=== PATIENT | female | born 1940 | race Caucasian/White ===

== ENCOUNTER 2017-05-21 05:15 | Inpatient (IN) | payer MEDICARE, BC ==
[~2017-05-21] VITALS: Ht 154.9 cm; Wt 79.4 kg
[~2017-05-21 05:15] MED LIST: ACTONEL 35 MG35 M1; ACTONEL 35 MG35 M1 PO; ACTONEL150 MG PO; AZITHROMYCIN 2250 MG PO; CELEBREX 200 M200 MG PO; DIAZOXIDE; DOVONEX120 GM TP; DYAZIDE 37.5-21 EACH; HYDROXYZINE HCL25 M2 GT; HYDROXYZINE HCL25 M2 PO; K-DUR10 MEQ; KLOR-CON 1010 MEQ PO; LORTAB 5 MG/5001 TA1; MAGOX 400400 MG PO; NIASPAN 500 MG500 M1; NIASPAN 500 MG500 M1 PO; OS-CAL 500+D C1 EACH; PERIDEX 0.12%473 M1 SSP; POTASSIUM99 M1 PO; PROZAC 20 MG20 MG PO; PROZAC20 MG PO; SPIRONOLACTONE100 M3 PO; SYNTHROID150 MCG; SYNTHROID150 MCG PO; TESSALON PERLE100 MG PO; ULORIC40 MG; ULORIC40 MG PO; VITAMIN D1000 UNI1 PO; VYTORIN 10-101 EACH PO; VYTORIN 10-201 EACH
[2017-05-21 05:17] VITALS: BP 171/108
[2017-05-21 05:50] LABS: ABSOLUTE EOSINOPHILS 0.1 thou/uL (0.0-0.7); ABSOLUTE LYMPHOCYTES 1.7 thou/uL (0.8-5.3); ABSOLUTE MONOCYTES 0.6 thou/uL (0.0-1.2); ABSOLUTE NEUTROPHILS 8.8 thou/uL (1.6-8.1); BASOPHILS 0.3 %; EOSINOPHILS 0.7 %; HEMATOCRIT 40.8 % (37.0-47.0); HEMOGLOBIN 13.5 gm/dL (12.0-15.0); LYMPHOCYTES 15.3 %; MCHC 33.2 g/dL (28.0-37.0); MCV 87.4 fL (80.0-100.0); MONOCYTES 5.4 %; MPV 8.5 fl. (7.2-11.1); NUCLEATED RBCS 0 /100WBC; PLATELET COUNT* 143 thou/uL (150-400); POLYS 78.3 %; RBC 4.67 mil/uL (4.20-5.00); RDW-CV 13.6 % (10.5-14.5); WBC 11.2 thou/uL (4.0-11.0)
[2017-05-21 05:58] LABS: CALCIUM 8.8 mg/dL (8.5-10.1); CREATININE 1.4 mg/dL (0.6-1.3); POTASSIUM 3.5 mmol/L (3.5-5.1)
[2017-05-21 06:03] LABS: ALBUMIN 3.8 g/dL (3.4-5.0); TOTAL BILIRUBIN 0.6 mg/dL (<0.1-1.0); TOTAL PROTEIN 7.1 g/dL (6.4-8.2)
[2017-05-21 06:10] LABS: URINE BILIRUBIN NEGATIVE (Negative); URINE BLOOD NEGATIVE (Negative); URINE CLARITY CLEAR; URINE COLOR STRAW; URINE GLUCOSE-RANDOM NEGATIVE (Negative); URINE KETONES NEGATIVE (Negative); URINE LEUKOCYTES-REFLEX 1+ (Negative); URINE NITRITE-REFLEX NEGATIVE (Negative); URINE PROTEIN TR (Negative); URINE UROBILINOGEN 0.2 E.U./dl (0.2-1.0)
[2017-05-21 06:13] LABS: CASTS None Seen /LPF (None Seen); CRYSTALS None Seen /LPF (None Seen); MUCUS 0-3 Light strn/LPF (None Seen); SQUAMOUS 0-3 Few /LPF (0-3); URINE RBC None Seen /HPF (0-2); WBC CLUMPS Moderate (None Seen)
[2017-05-21 09:27] VITALS: BP 127/61
[2017-05-21 12:43] VITALS: BP 111/55
[2017-05-21 14:59] LABS: INR 1.1; PROTIME 11.1 Seconds (9.20-11.50)
[2017-05-21 15:33] VITALS: BP 121/67
--- NOTE | 2017-05-21 18:09 | NUR ---
PATIENT ARRIVED ON UNIT FROM ER AT 1300. COMPLETED ADMISSION ASSESSMENT AND HISTORY. ORIENTED PATIENT TO ROOM, CALL LIGHT, AND TV. FALL CONTRACT SIGNED. PATIENT LEFT UNIT AT 1430 FOR PACU. PATIENT ALERT AND ORIENTED X'S 4. VITAL SIGNS AND SPO2 STABLE. IV CLEAN, FLUIDS INFUSING. SCD'S, YELLOW SOCKS IN PLACE. COMPLETED HOURLY ROUNDING. PATIENT IS STILL NOT BACK FROM SURGERY. WILL CONTINUE TO MONITOR.
--- NOTE | 2017-05-21 18:18 | EKG ---
[place] [address] ELECTROCARDIOGRAM REPORT Name: GUILLE LAN Room: [address] ADM IN M.R.#: [id number] Admission: 05/21/17 Attend Phys: Gianna Casey MD Discharge: Date of : 36 Report #: [id number] THIS REPORT FOR: //name// [facility] Test Date: 2017-05-21 Test Time: 15:22:20 Pat Name: GUILLE LAN Department: Room: [address] Gender: F Cognos Developer: 25 : 1940 Requested By: Anibal Parnell Order Number: [id number] Palak MD: Edwin Bar Measurements Intervals [place] Rate: 80 P: 43 MI: 168 QRS: 23 QRSD: 96 T: 17 QT: 396 QTc: 457 Interpretive Statements Sinus rhythm Compared to ECG 06/13/2011 09:38:10 No significant changes Electronically Signed On 05-21-2017 18:18:27 CDT by Edwin Bar [email or web address] <ELECTRONICALLY SIGNED> By: Edwin Bar MD, [facility] 05/21/17 1818 [id number] Edwin Bar MD, FACC /EPI
[2017-05-21 21:00] VITALS: BP 106/80
[2017-05-21 23:51] VITALS: BP 110/62
[2017-05-22 05:11] LABS: HEMOGLOBIN 11.6 gm/dL (12.0-15.0)
[2017-05-22 05:12] VITALS: BP 127/61
[2017-05-22] MEDS ORDERED: FENTANYL PATCH75 MCG TRANSDERM (08:08)
[2017-05-22 08:09] VITALS: BP 126/60
[2017-05-22 14:39] LABS: CALCIUM 8.5 mg/dL (8.5-10.1); CREATININE 1.3 mg/dL (0.6-1.3)
[2017-05-22 14:42] LABS: POTASSIUM 4.6 mmol/L (3.5-5.1)
--- NOTE | 2017-05-22 15:00 | NUR ---
SPOKE WITH PT., AND DAUGHTER . PT.FELL AT HOME WHILE TRYING TO PUT LEG IN PANT LEG AND LOST BALANCE. SHE LIVES WITH HER . HE WEARS O2. NEITHER OF THEM DRIVE. SHE IS NORMALLY INDEPENDENT AT HOME. 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 CAN BATHE AND DRESS HERSELF. USES A WALKER. SHE IS INTERESTED IN GOING TO OUR INPT.REHAB UNIT. CONSULT FOR PUT IN COMPUTER AND NOTIFIED SAMANTHA/REHAB [facility]ON. SHE HAS USED HOME HEALTH IN PAST BUT CANNOT REMEMBER NAME OF AGENCY. SHE HAS HX OF SNF AT [place]. CM WILL FOLLOW.
[2017-05-22 16:00] VITALS: BP 121/61
--- NOTE | 2017-05-22 18:04 | NUR ---
ASSUMED CARE OF PATIENT AFTER REPORT THIS MORNING. PATIENT AWAKE, ALERT, AND ORIENTED APPROPRIATELY. PHYSICAL ASSESSMENT COMPLETED AND CHARTED. COMPLAINED OF PAIN THIS SHIFT. GIVEN PRN AND SCHEDULED MEDICATIONS, SEE EMAR FOR DOCUMENTATION. VITAL SIGNS STABLE. OXYGEN SATURATION WITHIN NORMAL LIMITS ON ROOM AIR. PATIENT TRANSFERS AND AMBULATES WITH ASSISTANCE FROM STAFF. USES CALL LIGHT APPROPRIATELY. DENIES NEEDS AT THIS TIME. CALL LIGHT WITHIN REACH. NURSING WILL CONTINUE TO MONITOR.
[2017-05-22 20:00] VITALS: BP 121/67
[2017-05-23 00:42] VITALS: BP 123/58
[2017-05-23 04:25] VITALS: BP 139/54
[2017-05-23 05:08] LABS: HEMATOCRIT 29.7 % (37.0-47.0); HEMOGLOBIN 10.2 gm/dL (12.0-15.0); MCH 29.9 pg (26.0-34.0); MCHC 34.5 g/dL (28.0-37.0); MCV 86.6 fL (80.0-100.0); MPV 9.4 fl. (7.2-11.1); RBC 3.42 mil/uL (4.20-5.00); RDW-CV 13.5 % (10.5-14.5); WBC 9.1 thou/uL (4.0-11.0)
[2017-05-23 05:11] LABS: CALCIUM 8.3 mg/dL (8.5-10.1); CREATININE 1.3 mg/dL (0.6-1.3); POTASSIUM 3.9 mmol/L (3.5-5.1)
--- NOTE | 2017-05-23 05:17 | NUR ---
ASSUMED CARE OF PT AT 1900 ALERT AND ORIENTED X4 VS AND ASSESSMENT STABLE. PT GIVEN AMBIEN FOR SLEEP, ASKED PT IF SHE WANTED TO BE WOKEN UP OVERNIGHT FOR PAIN MEDS PT SAID NO. OFFERED PAIN MEDS TWICE AFTER PT GOT UP TO COMMODE PT REFUSED BOTH TIMES. WILL CONTINUE PLAN OF CARE.
[2017-05-23 07:54] VITALS: BP 121/61
--- NOTE | 2017-05-23 09:47 | NUR ---
RECEIVED CONSULT FOR POSSIBLE REHAB ADMISSION. CONSULT HAS BEEN ACKNOWLEDGED BY RETAINING ROOM CUTTER AND DR. CHAU. Pt. ADMITTED AFTER FALL W/ LEFT HIP FX AND IS S/P CLOSED REDUCTION WITH NAILING. Pt. EVALUATED BY PT/OT YESTERDAY AND HAS DEFINATE REHAB NEEDS. WILL FOLLOW ALONG WITH Pt. TO SEE HOW SHE PROGRESSES WITH THERAPIES AND ONCE MEDICALLY STABLE TO DETERMINE REHAB VS HOME WITH HH. THANK YOU FOR THIS CONSULT.
--- NOTE | 2017-05-23 17:26 | NUR ---
NO CHANGE IN PATIENT STATUS. REMAINS ALERT AND ORIENTED APPROPRIATELY. GIVEN PRN MEDICATIONS FOR PAIN, SEE EMAR FOR DOCUMENTATION. DENIES NEEDS AT THIS TIME. CALL LIGHT WITHIN REACH. NURSING WILL CONTINUE TO MONITOR.
[2017-05-24 00:22] VITALS: BP 118/67
[2017-05-24 03:42] VITALS: BP 117/60
--- NOTE | 2017-05-24 06:50 | NUR ---
PATIENT HAS SLEPT WELL THROUGHOUT THE NIGHT. PAIN HAS BEEN WELL CONTROLLED WITH ORAL PAIN MEDICATION. MEDICATIONS GIVEN AND CHARTED. VSS ON RA, ALTHOUGH PATIENT DID HAVE LOW GRADE TEMP OF 100.7. TYLENOL GIVEN AND TEMP DOWN TO 99.7. PATIENT ENCOURAGED TO USE INCENTIVE SPIROMETER. PATIENT IS UP WITH ASSIST X 1 WITH GAITBELT [place]ALKER [place] [facility]IENT SOMEHOW PULLED IV OUT THIS AM. NO IV ACCESS AT THIS TIME. PATIENT INSTRUCTED TO USE CALL LIGHT WHEN NEEDING ASSISTANCE. HOURLY ROUNDS MADE. WILL CONTINUE WITH PLAN OF CARE AND NURSING TO MONITOR.
[2017-05-24 08:44] VITALS: BP 143/65
--- NOTE | 2017-05-24 12:53 | NUR ---
ASSUMED CARES OF PT AT 0700. PT IN BED, BED IN LOW LOCKED POSITION, FALL PRECAUTIONS IN PLACE AND ACTIVE. CALL BUTTON AND PERSONAL ITEMS IN PT REACH. PT DENIES PAIN IF STAYING STILL, STATES PAIN JUMPS UP TO 9-10 UPON MOVEMENT. PT A&O X4, HRRR PER AUSCULTATION, LCTAB, AFEBRILE, PERRLA, ABD SOFT, NON TENDER TO PALPATION, ACTIVE PER 4 QUADS PER AUSCULTATION. HOURLY ROUNDING CONTINUES, PT PARTICIPATING IN THERAPIES. VSS ON RA, SKIN INTACT, SCATTERED BRUISING. LEFT ORIF DRESSING IN PLACE, C/D/I. IV LOST LAST NIGHT BY PT ACCIDENTLY PULLING OUT, IV ABT CHANGED TO PO ABT. PT UP ASSIST X1, GB/WALKER. PT BEING CONSIDERED FOR IN HOUSE REHAB IN [facility]. PT PLEASANT AND COOPERATIVE THIS MORNING ROUNDS. BM THIS MORNING. PT PROGRESSING TOWARDS GOAL. WILL CONTINUE TO MONITOR PT PROGRESS AND STATUS.
--- NOTE | 2017-05-24 14:58 | NUR ---
SPOKE WITH SAMANTHA ON REHAB. PT ACCEPTED TO GO TO REHAB UNIT IN AM
[2017-05-24 15:28] VITALS: BP 119/72
--- NOTE | 2017-05-24 17:05 | NUR ---
CONTINUING TO FOLLOW PATIENT ALONG WITH DR. CHAU. PATIENT HAS BEEN WORKING WITH THERAPIES AND SLOWLY PROGRESSING SOMETIMES LIMITED BY PAIN. SPOKE WITH PATIENT AND EXPLAINED QUALIFICATIONS AND EXPECTATIONS OF ACUTE REHAB VS. SKILLED AND THE REQUIREMENT OF BEING ABLE TO PARTICIPATE IN 3 HOURS OF THERAPY PER DAY. PATIENT STATES UNDERSTANDING AND IS WILLING AND IN AGREEMENT WITH ACUTE REHAB. WILL PLAN TO ADMIT PATIENT TO ACUTE REHAB TOMORROW IF MEDICALLY STABLE.
--- NOTE | 2017-05-24 20:10 | NUR ---
BEDSIDE REPORT TO MOTION GRAPHICS ARTIST FOR CONTINUED CARES. PT WILL D/C TO REHAB ON THIRD FLOOR TOMORROW FOR CONTINUE REHAB. VSS, PT A&O X4. HOURLY ROUNDS COMPLETED. PT PRESENTLY IN BED WITH TV ON READY FOR BED.
[2017-05-25 00:07] VITALS: BP 182/65
[2017-05-25 02:21] VITALS: BP 121/67
--- NOTE | 2017-05-25 04:30 | NUR ---
PATIENT ORIENTED X4 ON HOURLY ROUNDS. DENIES PAIN. TYLENOL GIVEN FOR FEVER. UP WITH ASSIST X1. DRESSING TO HIP CLEAN, DRY AND INTACT. VITALS STABLE ON ROOM AIR. WILL CONTINUE TO MONITOR.
[2017-05-25 08:58] VITALS: BP 111/52
[2017-05-25 16:29] VITALS: BP 109/53
[2017-05-25 19:31] VITALS: BP 109/53
[2017-05-25] MEDS ORDERED: ACTONEL150 MG PO (19:43)
[2017-05-25] MEDS ORDERED: PERIDEX 0.12%473 M1 SW&SWALLOW (19:54)
[2017-05-25] MEDS ORDERED: OXYCODONE HCL 55 MG PO (20:56)
[2017-05-25] MEDS ORDERED: PERIDEX 0.12%473 M1 PO (20:57)
--- NOTE | 2017-06-25 12:57 | OP ---
[address] [address] OPERATIVE REPORT Name: GUILLE LAN Room: [address] IN ..#: [id number] Admission: 05/21/17 Attend Phys: Gianna Casey MD Discharge: 05/25/17 Date of : 36 Report #: [id number] THIS REPORT FOR: //name// CC: Elvi Casey PREOPERATIVE DIAGNOSIS: Left intertrochanteric femur fracture. POSTOPERATIVE DIAGNOSIS: Left intertrochanteric femur fracture. PROCEDURE: Closed reduction and cephalomedullary nailing of the left intertrochanteric femur fracture. SURGEON: Anibal Parnell DO SOFTWARE BUILD ENGINEER: 1. Dirk Caraballo DO. 2. ____. ANESTHESIA: General. ANTIBIOTICS: Weight-appropriate dosing of Ancef IV preoperatively. ESTIMATED BLOOD LOSS: 150 mL. COMPLICATIONS: None. SPECIMENS: None. DRAINS: None. CONDITION: The patient is stable to PACU. IMPLANTS: Merritt gamma nail, 11 x 180 mm x 125 degree nail with 95 mm lag screw and 35 mm distal interlocking static screw. INDICATIONS FOR PROCEDURE: The patient sustained a ground level fall that led to a left intertrochanteric femur fracture and her admission to [facility]. We obtained full length femur films of her left femur, which showed total knee prosthesis distally with no evidence of any fracture and only the intertrochanteric femur fracture proximally that was a stable intertrochanteric fracture. I went over with her in detail, her daughter and were present at bedside, her diagnosis and also the recommendation for operative fixation of this fracture. I went over with them in detail, the risks and complications associated with surgery. Please see the consultation note for the full list of the risks and complications discussed. After addressing any questions or concerns that she or her family had, [place] [address] OPERATIVE REPORT Name: GUILLE LAN Room: [address]#: [id number] Admission: 05/21/17 Attend Phys: Gianna Casey MD Discharge: 05/25/17 Date of : 36 Report #: [id number] those risks and gave verbal and written consent to proceed with surgery. DESCRIPTION OF PROCEDURE: I asked the patient what extremity was correct in the presence of the preoperative and operative team. She said the left. I marked the extremity. All team members agreed. She was transferred to the operative suite where a briefing was performed indicating the correct patient, procedure, site, antibiotic and that all implants needed were present and sterile. She was given general anesthetic and then transferred over to the fracture table in the supine position, well padded and well secured. The left lower extremity was then sterilely prepped and draped in a standard fashion. An official timeout was performed indicating the correct patient, procedure, site, antibiotics and that all implants needed were present and sterile. All team members agreed. We brought in the C-arm and marked out the landmarks on both the AP and lateral planes, a 10 blade scalpel through the skin and electrocautery down and soft tissue dissection. We advanced the guidewire in its appropriate position on both AP and lateral planes and then reamed over this guidewire, placed the short gamma nail through this as it was a stable intertrochanteric femur fracture. We then made an incision for the double sleeve, inserted the double sleeve against bone and then placed the guidewire into the femoral neck and head in the appropriate position on the AP and lateral planes where it was centered in the head low in the neck on the AP and centered in the neck and head on the shaft, true lateral. We measured this and it was 90 mm. We therefore reamed to 90 mm and placed a 95 mm lag screw making sure that 5 mm will be protruding through the lateral aspect of the cortex. We then engaged the set screw fully and then backed off 1 quarter turn and confirmed the set screws was appropriately engaged by trying to turn the lag screwdriver handle, which we could not. At that point in time, we removed the double sleeve and guidewire, used the external guide to place the triple sleeve for distal interlocking static screw, scalpel through skin and soft tissue dissected down to bone. I placed the triple sleeve against bone and then drilled. It measured for a 35 screw and placed a 35 screw. At this point in time, all hardware was in place, we removed the external guide and obtained final C-arm images and saved those. We thoroughly irrigated with normal saline 1000 mL in total throughout all incision sites. All incisions had deep 0 Vicryl [id number] interrupted placed, 2-0 Monocryl buried deep subQ. The distal incision was closed with a running 3-0 suture with knots tied outside the skin. The proximal two incisions were closed with 3-0 Stratafix running subcuticular, Dermabond glue over the skin, sterile Telfa and Tegaderm dressings. Debriefing was performed where we confirmed the procedure as stated with no complication. Blood loss minimal at 150 mL and that all counts were correct and final. All team members agreed. She was successfully extubated and transferred off the operative table and taken to PACU in stable condition. POSTOPERATIVE COURSE AND EVALUATION: I spoke with her family. She gave me permission to do so. I am informing them that surgery went well and addressed any questions or concerns they had. They thanked me for my time. I went to examine her in the PACU area. She was resting comfortably. Her neurovascular [facility] [address] [place] [address] OPERATIVE REPORT Name: GUILLE LAN Room: [address] IN [facility].#: [id number] Admission: 05/21/17 Attend Phys: Gianna Casey MD Discharge: 05/25/17 Date of : 36 Report #: [id number] exam distally was unchanged. She can wiggle all toes actively, dorsiflexion and plantarflexion of the great toe and ankle. Palpable pedal pulses. All her compartments were soft and nontender. Dressing was clean, dry and intact. She is to weightbear as tolerated. PT will begin tomorrow. DVT prophylaxis with Lovenox. Case management to help with her discharge planning. <ELECTRONICALLY SIGNED> By: Salvatore Hughes DO 06/25/17 1257 2219 Marisela Parnell DO /nt
--- NOTE | 2017-07-03 13:29 | CON ---
[address] [address] CONSULTATION Name: GUILLE LAN Room: [address] IN M.R.#: [id number] Admission: 05/21/17 Attend Phys: Gianna Casey MD Discharge: 05/25/17 Date of : 36 Report #: [id number] THIS REPORT FOR: //name// CC: Elvi Casey REASON FOR CONSULTATION: Evaluation and recommendations regarding post-acute rehabilitation in a female, status post fall sustaining a left hip fracture. The patient was appropriate for rehabilitation and consultation did coincide with admission to inpatient rehabilitation, so a full consult was not completed and history and physical was completed instead for the patient. <ELECTRONICALLY SIGNED> By: Jesi Ivy DO 07/03/17 1329 1459 1704Jesi Ivy DO /nt
== END 2017-05-25 20:19 | DRG 480 ==
LOC: M.ERS 05:15 → M.TBA-ER 06:01 → M.ORTHSURG 06:01
PROVIDERS: Emergency Medicine; Internal Medicine; Orthopaedic Surgery; ADMIT Internal Medicine
PROC: 0QS734Z Reposition Left Upper Femur with Internal Fixation Device, Percutaneous Approach (ICD-10-PCS; principal; 2017-05-21)
DX: S72.145A Nondisplaced intertrochanteric fracture of left femur, initial encounter for closed fracture (principal); N17.0 Acute kidney failure with tubular necrosis; N39.0 Urinary tract infection, site not specified; K21.9 Gastro-esophageal reflux disease without esophagitis; M10.9 Gout, unspecified; E03.9 Hypothyroidism, unspecified; N18.3 Chronic kidney disease, stage 3 (moderate); I12.9 Hypertensive chronic kidney disease with stage 1 through stage 4 chronic kidney disease, or unspecified chronic kidney disease; E78.5 Hyperlipidemia, unspecified; J44.9 Chronic obstructive pulmonary disease, unspecified; M19.90 Unspecified osteoarthritis, unspecified site; Z96.653 Presence of artificial knee joint, bilateral; W18.30XA Fall on same level, unspecified, initial encounter; Z79.899 Other long term (current) drug therapy; Y93.89 Activity, other specified; Y92.002 Bathroom of unspecified non-institutional (private) residence as the place of occurrence of the external cause; Y99.8 Other external cause status

== ENCOUNTER 2017-05-25 15:18 | Inpatient (IN) | payer MEDICARE, BC ==
[~2017-05-25] VITALS: Ht 167.6 cm; Wt 78.5 kg
[~2017-05-25 15:18] MED LIST changes: +FENTANYL PATCH75 MCG TRANSDERM
[2017-05-25] MEDS ORDERED: ACTONEL150 MG PO (19:43)
[2017-05-25] MEDS ORDERED: PERIDEX 0.12%473 M1 SW&SWALLOW (19:54)
--- NOTE | 2017-05-25 20:15 | NUR ---
PT ARRIVED PER W/C FROM ORTHO UNIT. TRANSFERRED FROM W/C TO BED WITH CGA, GAITBELT, WALKER. REQUIRED LEGS TO BE LIFTED INTO THE BED. LEFT HIP DRESSINGS DRY/INTACT. PT VERY ANXIOUS, FUSSY, NEEDY. C/O LEFT HIP PAIN RATED "10". ORIENTED TO ROOM AND BED CONTROLS.
[2017-05-25 20:16] VITALS: BP 129/55
[2017-05-25] MEDS ORDERED: OXYCODONE HCL 55 MG PO (20:56)
[2017-05-25] MEDS ORDERED: PERIDEX 0.12%473 M1 PO (20:57)
[2017-05-26 04:29] LABS: HEMATOCRIT 26.4 % (37.0-47.0); MCH 29.5 pg (26.0-34.0); MCV 86.7 fL (80.0-100.0); MPV 9.6 fl. (7.2-11.1); RBC 3.04 mil/uL (4.20-5.00); RDW-CV 13.5 % (10.5-14.5); WBC 6.1 thou/uL (4.0-11.0)
[2017-05-26 04:50] LABS: CALCIUM 8.6 mg/dL (8.5-10.1); CREATININE 1.3 mg/dL (0.6-1.3); POTASSIUM 3.8 mmol/L (3.5-5.1)
--- NOTE | 2017-05-26 06:09 | NUR ---
UP X 3 DURING THE NIGHT TO THE BEDSIDE COMMODE WITH ASSIST TO VOID. NO FURTHER C/O PAIN. HOURLY ROUNDING IN PROGRESS.
[2017-05-26 07:49] VITALS: BP 113/54
--- NOTE | 2017-05-26 15:24 | NUR ---
ASSUMED CARE AT 0730. ALERT ORIENTED PLEASANT COOPERATIVE. HX OF L HIP FX WBATLLE. TRANSFERS WITH SBA G BELT WALKER FROM BED TO STANDING AND AMBULATES TO BR TO VOID AND HAD A SMALL FORMED BM ABLE TO DO HYGEINE AND CLOTHING ADJUSTMENTS. MEDICATED X 1 FOR L HIP PAIN WITH PRN MED. USES CALL LIGHT APPROPRIATELY FOR ASSISTANCE BED CHAIR ALARM FOR PT. SAFETY. FEEDS SELF TAKES MEDS WITHOUT DIFFICULTY. PARTICIPATING IN THERAPIES TODAY. DRESSING C/D/I TO LEFT HIP BRUISING THIGH HIP AREA NOTED. TO FOR MEALS AMBULATORU=Y WITH WALKER.
--- NOTE | 2017-05-26 20:00 | NUR ---
AMBULATED TO THE BATHROOM WITH SBA, GAITBELT, WALKER. DID OWN HYGIENE AND CLOTHING ADJUSTMENTS. HAD A MODERATE BM. PAIN MED GIVEN FOR C/O LEFT HIP PAIN RATED "10". LEFT HIP DRESSINGS DRY/INTACT. C/O MOUTH SORENESS. TOOK MEDS WHOLE ALL AT ONCE WITH WATER.
[2017-05-26 20:15] VITALS: BP 129/57
[2017-05-27 04:31] LABS: HEMATOCRIT 26.5 % (37.0-47.0); MCH 29.5 pg (26.0-34.0); MCHC 34.2 g/dL (28.0-37.0); MCV 86.3 fL (80.0-100.0); MPV 9.8 fl. (7.2-11.1); RBC 3.06 mil/uL (4.20-5.00); RDW-CV 13.3 % (10.5-14.5); WBC 5.5 thou/uL (4.0-11.0)
[2017-05-27 04:59] LABS: ALBUMIN 2.9 g/dL (3.4-5.0); CALCIUM 8.7 mg/dL (8.5-10.1); CREATININE 1.3 mg/dL (0.6-1.3); MAGNESIUM 2.2 mg/dL (1.8-2.4); POTASSIUM 3.7 mmol/L (3.5-5.1); TOTAL BILIRUBIN 0.9 mg/dL (<0.1-1.0); TOTAL PROTEIN 5.8 g/dL (6.4-8.2)
--- NOTE | 2017-05-27 05:27 | NUR ---
UP X TWO DURING THE NIGHT TO THE BATHROOM TO VOID. PAIN MED GIVEN FOR C/O LEFT HIP PAIN WITH RELIEF. HOURLY ROUNDING IN PROGRESS.
[2017-05-27 07:30] VITALS: BP 118/59
[2017-05-27 19:49] VITALS: BP 119/67; BP 95/49
--- NOTE | 2017-05-28 05:13 | NUR ---
ASSUMED PT CARE AT 1930. PT ALERT AND ORIENTED X4. HX OF L HIP FX WBATLLE. UP WITH SBA, GAIT BELT AND WALKER. UP X1 OVERNIGHT TO VOID. NO STOOL THIS SHIFT. PAIN AND SLEEP MEDICATION AT HS. TAKES MEDS WHOLE WITH WATER WITHOUT DIFFICULTY. DRESSING TO LEFT HIP C/D/I, BRUISING TO LEFT THIGH. PT USES CALL LIGHT APPROPRIATELY. CALL LIGHT AND FREQUENTLY USED ITEMS WITHIN REACH. HOURLY ROUNDING IN PROGRESS, WILL CONTINUE TO MONITOR.
[2017-05-28 07:52] VITALS: BP 118/58
--- NOTE | 2017-05-28 13:57 | NUR ---
Nutrition: Pt admitted to Rehab with femur FX. She has UTI, oral thrush, gout, GERD, HTN. +BM. Busy with therapies at 13:30. Spoke with RN. Pt is eating fair amount d/t thrush and a sore under dentures. BG ok, alb 2.9. Wt: 183#. She is taking liquids well. She likes Boost, but there are several piles up in her room from not drinking all of them. RD will not order Boost at htis time. RN stated she will just get a Boost for pt upon request. No other nutrition interventions needed at this time. Will follow weekly.
--- NOTE | 2017-05-28 18:41 | NUR ---
ASSUMED CARE AT 0730. ALERT ORIENTED PLEASANT COOPERATIVE. HX OF L HIP FX WBATLLE. TRANSFERS WITH SBA G BELT WALKER AMBULATES TO BR TO VOID. PARTICIPATING IN THERAPIES THROUGHOUT THE DAY. MEDICATED X 2 FOR L HIP PAIN. DRESSING C/D/I BRUISING L HIP. C/O SORE MOUTH DUE TO THRUSH IS RECEIVING DIFLUCAN DAILY. ALSO HAD C/O L KNEE PAIN X RAY WAS DONE NEGATIVE. FEEDS SELF AND TAKES MEDS WITHOUT DIFFICULTY. IS CONCERNED WITH BOWELS MIRALAX GIVEN TODAY PER PT. REQUEST. AND NIECE VISITING THIS AFTERNOON.
[2017-05-28 19:49] VITALS: BP 124/43
--- NOTE | 2017-05-28 23:14 | NUR ---
ASSUMED CARE AT 1930. PATIENT S/P FX LT HIP. DRESSING C/D/I. UP WITH SBA, GAIT BELT, WALKER. VOIDS PER TOILET OFTEN. DRINKS LOTS OF ICE WATER. TAKES PILLS WHOLE WITH WATER. MEDICATED FOR PAIN, SEE MAR. CONCERNED ABOUT LT KNEE, XR RESULTS REVIEWED WITH PATIENT. DOES OWN DENTURE CARES. INSISTED ON HAVING TWO DULCOLAX TABS, TWO STOOL SOFTENERS. MOVES SELF IN BED, REFUSES ASSIST. REFUSES HEELS OFFLOADED. HOURLY ROUNDS CONTINUE. BED ALARM ON. CALL LITE IN REACH.
--- NOTE | 2017-05-29 06:04 | NUR ---
SLEPT, AWAKENING TO VOID. VOIDS OFTEN. PATIENT DRANK TWO PITCHERS OF WATER THIS SHIFT. TURNS SELF. REFUSES ASSIST WITH TURNS. CHUX CHANGED TWICE DUE TO PATIENT'S SWEATING. DSSG C/D/I. AREA REMAINS BRUISED. TURNS SELF. HOURLY ROUNDS CONTINUE. BED ALARM ON. CALL LITE IN REACH.
[2017-05-29 08:00] VITALS: BP 140/63
--- NOTE | 2017-05-29 15:42 | NUR ---
SW met with pt to complete initial assessment, introduce self, and SW role. Pt alert and oriented, getting ready to go to lunch. Pt lives at home with her and pt dtr is supportive in pt care as well. Pt has walkers and has had a history of HH but did not recall the name of the agency. SW to continue to follow to assist with safe dc planning.
--- NOTE | 2017-05-29 16:06 | NUR ---
ASSUMMED CARE OF PT AT 0730, PT ALERT AND ORIENTED, PT TRANSFERS WITH SBA, GB WALKER, PT DENIES NAUSEA, TAKING FOOD AND FLUIDS WELL, DRESSING TO LEFT HIP C/D/I, COMPLAIN OF PAIN IN LEFT HIP, MEDICATED PER ORDER, PT STATES STILL HAS SOME SORENESS IN MOUTH WITH DENTURES, PARTICIPATED IN ALL THERAPIES, VOIDS PER TOILET, TO DININGROOM FOR LUNCH, HOURLY ROUNDING COMPLETED, ASSESSMENT COMPLETE, WILL CONTINUE TO MONITOR.
[2017-05-29 20:07] VITALS: BP 138/70
--- NOTE | 2017-05-29 21:30 | NUR ---
RESTING QUIETLY IN BED. AMBULATED TO THE BATHROOM WITH SBA, GAITBELT, WALKER. INCONTINENT OF URINE BUT URINE CONTAINED IN THE DEPENDS. DOES OWN HYGIENE AND JAMES CARE. PAIN MEDS GIVEN FOR C/O LEFT HIP PAIN RATED "10". LEFT HIP DRESSINGS DRY/INTACT. TOOK MEDS WHOLE WITH WATER.
--- NOTE | 2017-05-30 05:56 | NUR ---
UP X TWO TO THE BATHROOM DURING THE NIGHT. HAD A BM EARLY THIS MORNING. TOOK ONE PAIN MED PER REQUEST FOR C/O LEFT HIP PAIN RATED "5". HOURLY ROUNDING IN PROGRESS.
[2017-05-30 07:47] VITALS: BP 125/61
--- NOTE | 2017-05-30 15:15 | NUR ---
SW met with pt to review team conference summary and plan for pt to continue therapy on inpt acute rehab unit for one more week with team to reassess pt length of stay with possibility that pt ready to dc next Thursday 06/08. Pt was in agreement and really wants to be able to remain on rehab as long as possible as she expressed that she does not feel she can do everything on her own yet. Pt asked if she could be up ad prabha in her room prior to dc at least a day, SW explained that can happen in some cases, and that the doctor and team would help to determine if that could be a possibility or not. SW to continue to follow to assist with safe dc planning.
--- NOTE | 2017-05-30 17:37 | NUR ---
ASSUMED CARE AT 0730 PATIENT ALERT/ORIENTED, PAIN MEDS INCREASED THIS SHIFT DUE TO CONTINUED PAIN, XRAY OF LEFT HIP NEGATIVE. PARTICIPATED IN ALL THERAPIES TODAY, TO DINING ROOM FOR MEALS. FLEXERIL STARTED THIS SHIFT. DRESSING TO LEFT HIP CLEAN/DRY/INTACT, UP WITH ONE AND WALKER/GAIT BELT. HOURLY ROUNDING COMPLETED, BED/CHAIR ALARMS IN PLACE. CALL LIGHT IN REACH.
[2017-05-30 19:46] VITALS: BP 114/51
--- NOTE | 2017-05-30 20:35 | NUR ---
AMBULATED TO THE BATHROOM WITH SBA, GAITBELT, WALKER. DOES OWN HYGIENE AND CLOTHING ADJUSTMENTS. PAIN MEDS GIVEN FOR C/O LEFT HIP PAIN RATED "10".
--- NOTE | 2017-05-31 05:36 | NUR ---
UP X 5 DURING THE NIGHT TO THE BATHROOM. HAD TWO BM'S DURING THE NIGHT. NO FURTHER C/O PAIN DURING THE NIGHT. HOURLY ROUNDING IN PROGRESS.
[2017-05-31 07:46] VITALS: BP 118/49
--- NOTE | 2017-05-31 17:03 | NUR ---
ASSUMED CARE AT 0730 PATIENT ALERT/ORIENTED, PAIN MEDS GIVEN REQUESTED, GOOD PAIN CONTROL TODAY, FLEXERIL GIVEN PRN. UP WITH ASSIST OF ONE AND WALKER/GAIT BELT, PARTICIPATED IN ALL THERAPIES TODAY, TO DINING ROOM FOR MEALS. BED/CHAIR ALARMS IN PLACE, CALL LIGHT IN REACH. HOURLY ROUNDING COMPLETED. DRESSING TO LEFT HIP REMAINS CLEAN/DRY/INTACT.
[2017-05-31 20:09] VITALS: BP 120/67
--- NOTE | 2017-06-01 05:24 | NUR ---
ASSUMED CARES AT 1915. PT ALERT AND ORIENTED. SOMEWHAT ANXIOUS BUT PLEASANT. PAIN MEDS GIVEN NEEDED. AMBIEN GIVEN FOR SLEEP AID. TAKES PILLS WHOLE WITHOUT ISSUES. SHE IS S/P LEFT FEMUR ORIF. WBAT LLE. DRESSING TO LEFT LEG INTACT. SBA WITH GAIT BELT AND WALKER. UP TO BATHROOM FEW TIMES DURING THE NIGHT. DOES OWN CARES. WEARS PULLUPS. SLEPT LONGER TONIGHT. USED CALL LIGHT APPROPRIATELY. BED ALARM ON.
[2017-06-01 07:30] VITALS: BP 102/52
--- NOTE | 2017-06-01 17:56 | NUR ---
ASSUMED CARE AT 0730. ALERT ORIENTED PLEASANT COOPERATIVE. HX OF L HIP FX DRESSING C/D/I BRUISING STILL PRESENT L HIP THIGH AREA. MEDICATED X 2 FOR C/O L HIP PAIN WITH SOME RELIEF STATED. TRANSFERS WITH SBA G BELT WALKER AMBULATES TO BR TO VOID AND HAD A BM. ABLE TO DO HYGEINE AND CLOTHING ADJUSTMENTS. STILL C/O SORE MOUTH BUT REMAINS ON DIFLUCAN DAILY. FEEDS SELF AND TAKES MEDS WITHOUT DIFFICULTY. PARTICIPATING IN THERAPIES THROUGHOUT THE DAY. USES CALL LIGHT APPROPRIATELY FOR ASSIST.
[2017-06-01 21:10] VITALS: BP 110/63
--- NOTE | 2017-06-01 22:15 | NUR ---
ASSUMED CARE AT 1930. PATIENT S/P ORIF LT HIP. DSSGS C/D/I. UP WITH SBA, GAIT BELT, WALKER. VOIDS PER TOILET. TOOK AMBIEN, PAIN MEDS AND FLEXARIL AT HS. HAD BM TODAY, BUT ALSO TOOK COLACE AND MIRILAX WITH CRANBERRY JUICE. REFUSES DULCOLAX PILLS, PRUNE JUICE. VOIDS PER TOILET. REFUSES TO OFFLOAD HEELS DESPITE EDUCATION. VERY CONCERNED ABOUT HER BOWEL STATUS. HOURLY ROUNDS CONTINUE. BED ALARM ON. CALL LITE IN REACH.
--- NOTE | 2017-06-02 05:41 | NUR ---
SLEPT MOST OF THE NIGHT, AWAKENING TO VOID. SEE TOILETING INTERVENTIONS. UP WITH GAIT BELT, WALKER, SBA. DOES OWN HYGIENE AND CHANGES OWN PULLUP. MEDICATED FOR PAIN WITH RELIEF, SEE MAR. TURNS SELF. PUT UPPER DENTURE IN AFTER LAST VOID. HOURLY ROUNDS CONTINUE. BED ALARM ON. CALL LITE IN REACH.
[2017-06-02 07:00] VITALS: BP 130/73
--- NOTE | 2017-06-02 16:57 | NUR ---
ASSUMED CARE AT 0730 PATIENT ALERT/ORIENTED, PAIN MEDS GIVEN FOR LEFT HIP PAIN, DRESSING TO HIP CLEAN/DRY/INTACT, FLEXERIL GIVEN WITH GOOD RESULTS, UP WITH STANDBY ASSIST AND WALKER/GAIT BELT. PARTICIPATED IN ALL THERAPIES TODAY, TO DINING ROOM FOR MEALS. BED/CHAIR ALARMS IN PLACE, HOURLY ROUNDING COMPLETED, CALL LIGHT IN REACH.
[2017-06-02 20:00] VITALS: BP 128/56
--- NOTE | 2017-06-02 22:52 | NUR ---
ASSUMED CARE AT 1930. PATIENT S/P LT HIP ORIF. TURNS SELF IN BED. UP WITH SBA, GAIT BELT, WALKER. CAN DO HYGIENE AND CLOTHING ADJUSTMENTS. WEARS BRIEFS AND CHANGES THEM HERSELF WITH SET UP. TAKES PILLS WHOLE WITH WATER WITHOUT DIFF. DECLINED COLACE THIS PM, STATES TOOK MIRILAX EARLIER AND NO NEED FOR IT. TOOK AMBIEN, PAIN MEDS AND FLEXARIL AT HS. SEE MAR. DSSG C/D/I TO LT HIP. TURNS SELF VERY EASILY IN BED. HOURLY ROUNDS CONTINUE. BED ALARM ON. CALL LITE IN REACH.
--- NOTE | 2017-06-03 05:33 | NUR ---
SLEPT MUCH OF THE NIGHT EXCEPT GETTING UP TO VOID. HAD VERY SMALL BM. UP WITH SBA, GAIT BELT, WALKER. MANAGES OWN PULLUPS WITH SET UP. TURNS SELF. GETS BOTH LEGS IN AND OUT OF BED WITHOUT ASSIST. HOURLY ROUNDS CONTINUE. BED ALARM ON. CALL LITE IN REACH.
[2017-06-03 07:16] VITALS: BP 116/66
--- NOTE | 2017-06-03 16:55 | NUR ---
ASSUMED CARE AT 0730 PATIENT ALERT/ORIENTED, PAIN MEDS GIVEN X1 THIS SHIFT WITH GOOD RELIEF, OWN BED BATH PERFORMED WITH SET UP ONLY, UP TO BATHROOM WITH WALKER/GAIT BELT AND STANDBY ASSIST, DRESSING TO LEFT HIP REMAINS CLEAN/DRY/INTACT. HOURLY ROUNDING COMPLETED, BED/CHAIR ALARMS IN PLACE. FAMILY VISITING THROUGHOUT DAY. CALL LIGHT IN REACH.
[2017-06-03 20:00] VITALS: BP 134/62
--- NOTE | 2017-06-03 23:01 | NUR ---
ASSUMED CARE AT 1930. PATIENT S/P ORIF LT HIP. RESTING IN BED. TURNS SELF IN BED. UP WITH SBA, GAIT BELT, WALKER. CAN GET LEGS IN AND OUT OF BED. DRESSING TO LT HIP C/D/I, BRUISING CONTINUES. VOIDS PER TOILET. DOES OWN HYGIENE AND CHANGES PULLUP WITH SET UP. MEDICATED FOR SLEEP, PAIN AND MUSCLE RELAXING AT HS, SEE MAR. TOOK ONLY ONE COLACE THIS PM. REMOVED OWN DENTURES AND PLACED THEM IN CUP FOR SOAKING IN HER SPECIAL SOLUTION. HOURLY ROUNDS CONTINUE. BED ALARM ON. CALL LITE IN REACH.
--- NOTE | 2017-06-04 05:39 | NUR ---
SLEPT MOST OF THE NIGHT. NO FURTHER C/O PAIN. TURNS SELF. VOIDED PER TOILET. CALL LITE IN REACH. BED ALARM ON. HOURLY ROUNDING CONTINUES.
[2017-06-04 07:40] VITALS: BP 116/58
[2017-06-04 12:07] LABS: URINE BILIRUBIN NEGATIVE (Negative); URINE BLOOD NEGATIVE (Negative); URINE CLARITY CLEAR; URINE COLOR YELLOW; URINE GLUCOSE-RANDOM NEGATIVE (Negative); URINE KETONES NEGATIVE (Negative); URINE LEUKOCYTES-REFLEX NEGATIVE (Negative); URINE NITRITE-REFLEX NEGATIVE (Negative); URINE PROTEIN TRACE (Negative); URINE SPECIFIC GRAVITY 1.025 (1.005-1.030); URINE UROBILINOGEN 0.2 E.U./dl (0.2-1.0)
--- NOTE | 2017-06-04 14:52 | NUR ---
ASSUMED CARE AT 0730. ALERT ORIENTED, PLEASANT COOPERATIVE. HX OF L HIP FX WBATLLE. TRANSFERS WITH SBA G BELT WALKER AMBULATES TO BR TO VOID ABLE TO DO HYGEINE CLOTHING ADJUSTMENTS. DRESSING C/D/I L HIP BRUISING STILL PRESENT. MEDICATED X 1 WITH PRN PAIN MED THIS A.M. BEFORE THERAPIES START FOR THE DAY. C/O L HIP AND KNEE PAIN LIDODERM PATCH AND ICE ORDERED FOR L KNEE. FEEDS SELF AND TAKES MEDS WITHOUT DIFFICULTY. USES CALL LIGHT APPROPRIATELY BED CHAIR ALARM FOR PT. SAFETY. APPETITE FAIRLY GOOD MOUTH SORENESS IS SOME BETTER. PARTICIPATING IN THERAPIES THROUGHOUT THE DAY. U/A WAS SENT AND IS NEGATIVE. UP IN RECLINER WHEN NOT PARTICIPATING IN THERAPIES.
[2017-06-04 20:00] VITALS: BP 127/56
--- NOTE | 2017-06-05 05:04 | NUR ---
ASSUMED CARES AT 1930. PT ALERT AND ORIENTED. PLEASANT. S/P LEFT HIP ORIF. DRESSING INTACT. C/O PAIN TO LEFT KNEE. PAIN MEDS GIVEN NEEDED. SHE IS A SBA WITH GAIT BELT AND WALKER. UP TO BATHROOM SEVERAL TIMES DURING THE NIGHT. DOES OWN CARES. WAS ABLE TO SLEEP FOR SHORT WHILE. CALL LIGHT IN REACH AND BED ALARM ON.
[2017-06-05 07:34] VITALS: BP 103/52
--- NOTE | 2017-06-05 13:33 | NUR ---
ASSUMED CARE AT 0730. ALERT ORIENTED PLEASANT COOPERATIVE. HX OF L HIP FX WBATLLE. TRANSFERS WITH SBA G BELT WALKER AND AMBULATES TO BR TO VOID ABLE TO DO HYGEINE AND CLOTHING ADJUSTMENTS. USES CALL LIGHT APPROPRIATELY FOR ASSIST. BED CHAIR ALARM FOR PT. SAFETY. PARTICIPATING IN THERAPIES. MEDICATED X 1 FOR L KNEE PAIN BEFORE THERAPIES START. TO DR FOR MEALS APPETITE POOR LUNCH SHE DIDNT LIKE MEAL. SOCIALIZES WITH OTHER PTS.
--- NOTE | 2017-06-05 15:17 | NUR ---
SLADE called to speak with pt saroj Treviño at [phone] about team conference and dc planning with no answer so SLADE left a message requesting call back with any questions.
[2017-06-05 19:45] VITALS: BP 127/78
--- NOTE | 2017-06-06 05:09 | NUR ---
ASSUMED CARES AT 1920. PT ALERT AND ORIENTED. PLEASANT. C/O PAIN TO LEFT KNEE. PAIN MEDS GIVEN NEEDED. DRESSING TO LEFT HIP IS INTACT. SHE IS A SBA WITH GAIT BELT AND WALKER. UP TO BATHROOM SEVERAL TIMES DURING THE NIGHT. DOES OWN CARES. WEARS PULLUPS FOR OCCASIONAL STRESS INCONTINENCE. SLEPT OFF AND ON. CALL LIGHT IN REACH AND BED ALARM ON.
[2017-06-06 08:00] VITALS: BP 111/48
[2017-06-06 08:12] VITALS: BP 111/48
--- NOTE | 2017-06-06 16:54 | NUR ---
AM ASSESSMENT AND VITAL SIGNS COMPLETED DOCUMENTED. PT HAS BEEN PLEASANT AND COOPERATIVE, COMPLETED ALL THERAPY SESSIONS WITHOUT COMPLAINT. PT TRANSFERS AND AMBULATES WITH WALKER AND STAND BY ASSIST. PAIN HAS BEEN WELL CONTROLLED WITH PRN MEDS. DISCHARGE ANTICIPATED SUNDAY.
--- NOTE | 2017-06-06 17:10 | NUR ---
SLADE met with pt to review team conference summary. Plan for pt to dc home with family on Sunday. services to follow. SLADE discussed team's recommendation for family training and called pt saroj Ceballos at [phone] with no answer so SW left a message requesting possible family training for 2pm on ; pt hopeful to practice a car transfer either way. Pt also hopeful to be able to be mod I in her room tomorrow, still to be determined. SW to continue to follow to assist with safe dc planning.
[2017-06-06 20:00] VITALS: BP 134/61
[2017-06-07 05:05] VITALS: BP 134/61
[2017-06-07] MEDS ORDERED: FLEXERIL PO (05:15)
--- NOTE | 2017-06-07 05:22 | NUR ---
ASSUMED CARES AT 1920. PT ALERT AND ORIENTED. PLEASANT. LITTLE ANXIOUS ABOUT D/C ON SUNDAY. HAS QUESTIONS ABOUT F/U APPTS AND DRESSING. REASSURED PT THAT THIS WILL BE REVIEWED WITH HER BEFORE SHE LEAVES. REQUESTED PRUNE JUICE THIS AM SINCE SHE HAS NOT HAD BM. PAIN MEDS GIVEN NEEDED. SHE IS A SBA WITH GAIT BELT AND WALKER. UP TO BATHROOM SEVERAL TIMES DURING THE NIGHT. WEARS PULLUPS FOR STRESS INCONTINENCE. PT DOES OWN CARES. PT WANTING CLARIFICATION WHEN SHE CAN BE [place]ERARDO IN RM. SLEPT OFF AND ON. CALL LIGHT IN REACH AND BED ALARM ON.
[2017-06-07 08:00] VITALS: BP 127/66
--- NOTE | 2017-06-07 14:30 | NUR ---
SLADE discussed pt dc home on Sunday with HH services to follow. SLADE faxed referral and orders to pt/family preference of [facility] at fax [phone]. Pt in need of RW ordered for dc, SLADE faxed information and order to Franny at [facility] and Franny called back and confirmed acceptance of referral and provided approval to issue. SLADE to continue to follow to assist with safe dc planning.
--- NOTE | 2017-06-07 17:42 | NUR ---
PATIENT HAS BEEN A/O X 4 THIS SHIFT. MEDICATED FOR LEFT KNEE PAIN THIS AM WITH RELIEF. LIDODERM PATCH IN PLACE TO LEFT KNEE. UP WITH SBA WITH GAITBELT AND WALKER THIS AM. PATIENT MOD I IN THE ROOM ONLY DURING THE DAY AND EDUCATED TO BE SUPERVISION AT NIGHT WITH NURSING AND TO USE THE CALL LIGHT. PATIENT WAS TO HAVE FAMILY TRAINING THIS AFTERNOON, NO FAMILY SHOWED UP FOR TRAINING. REHAB [facility] SPOKE WITH PATIENT REGARDING THE NEED FOR PATIENT TO HAVE FAMILY TRAINING THIS EVENING AND PATIENT STATED HER CHILDREN WORKED DURING THE DAY. PATIENT ATTENDED ALL THERAPIES. TO DINING ROOM FOR MEALS. TOLERATING MEALS. HOURLY ROUNDING COMPLETED THIS SHIFT. FALL PRECAUTIONS IN PLACE. CALL LIGHT WITHIN REACH AND ABLE TO MAKE NEEDS KNOWN. DC PLANNING FOR THURSDAY 06/08.
[2017-06-07 20:08] VITALS: BP 106/59
--- NOTE | 2017-06-07 23:52 | NUR ---
ASSUMED CARE AT 1930. PATIENT S/P LT HIP ORIF. RESTING IN BED. 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 UP WITH SBA, GAIT BELT, WALKER. VOIDS PER TOILET, DOES OWN CARES. TAKES PILLS WHOLE WITH WATER. DRESSING C/D/I. TOOK MIRILAX AND PRUNE JUICE TONIGHT, SEE MAR FOR HS PAIN AND SLEEP MEDS. TURNS SELF. HOURLY ROUNDS CONTINUE. CALL LITE IN REACH. BED ALARM ON.
--- NOTE | 2017-06-08 05:52 | NUR ---
SLEPT MOST OF THE SHIFT. TURNS SELF. HAS VOIDED PER TOILET, UP WITH SBA, GAIT BELT, WALKER. MEDICATED FOR PAIN AT HS, BUT NONE SINCE. HOURLY ROUNDS CONTINUE. BED ALARM ON. CALL LITE IN REACH. WILL BE MOD I DURING DAY SHIFT.
[2017-06-08 07:00] VITALS: BP 120/66
[2017-06-08 08:00] VITALS: BP 120/60
[2017-06-08 11:19] VITALS: BP 134/61
--- NOTE | 2017-06-08 11:32 | NUR ---
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 SLADE called [facility] with intake of [facility] at phone number [phone] and confirmed acceptance of referral and orders, to begin HH services Sunday or Sunday. SW to fax dc summary if available. SLADE called inpt PT and rolling walker to be issued to pt today prior to pt dc. No other needs expressed. Pt to dc home with family today, Thursday 06/08 and HH services to follow.
--- NOTE | 2017-06-08 14:50 | NUR ---
PT CARE ASSUMED THIS AM, ASSESSMENT AND VITAL SIGNS COMPLETED DOCUMENTED. PT WAS MOD I IN HER ROOM TODAY WITH NO DIFFICULTY, STATES SHE FEELS MUCH STRONGER AND MUCH BETTER ABOUT GOING HOME. AM THERAPY SESSIONS COMPLETED, DISCHARGE GOALS HAVE BEEN MET. PT PROVIDED WITH VERBAL AND PRINTED DISCHARGE INSTRUCTIONS. PT AND BELONGINGS TRANSPORTED TO THE EXIT, ASSISTED INTO CAR AND DISCHARGED HOME.
--- NOTE | 2017-06-11 15:04 | D ---
[address] [address] DISCHARGE SUMMARY Name: GUILLE LAN Room: [address] IN M.R.#: [id number] Admission: 05/25/17 Attend Phys: Jesi Ivy DO Discharge: 06/08/17 Date of : 36 Report #: [id number] THIS REPORT FOR: //name// CC: Elvi Ivy DATE OF SERVICE: 06/08/2017 DISCHARGE DIAGNOSIS: Left hip fracture. DISCHARGE DISPOSITION: To home setting with home health PT, OT, nursing. Maintain hip precautions. FOLLOWUP: Follow up with Orthopedic Surgery in 1-2 weeks and primary care physician within 1 week. MEDICATIONS: Reviewed and reconciled by myself and are available in the MAR. The patient did progress well with her therapies to nearly modified independent level of function. She did maintain modified independent in her room for 1-1/2 days prior to discharge to the home setting. Notifications for physician were given. She will maintain fall precautions and hip precautions. DISCHARGE PHYSICAL EXAMINATION: GENERAL: Alert, oriented, in no apparent distress. VITAL SIGNS: Reviewed and are stable. HEENT: Atraumatic, normocephalic. Pupils equal, round, reactive. ABDOMEN: Soft, nontender, nondistended. NEUROLOGIC: Cranial nerves 2-12 are grossly intact with no focal neuro deficits, 5/5 strength in the bilateral upper and lower extremities. SKIN: Warm and dry. No rashes or lesions noted. <ELECTRONICALLY SIGNED> By: Jesi Ivy DO 06/11/17 1504 0945 1201Jesi Ivy DO /nt
--- NOTE | 2017-07-03 13:29 | H ---
[place] [address] HISTORY AND PHYSICAL Name: GUILLE LAN Room: [address] IN M.R.#: [id number] Admission: 05/25/17 Attend Phys: Jesi Ivy DO Discharge: 06/08/17 Date of : 36 Report #: [id number] THIS REPORT FOR: //name// CC: Elvi Ivy DATE OF SERVICE: 05/26/2017 This is a 76-year-old female admitted to inpatient rehabilitation to facilitate safe discharge home, status post acute hospitalization on 05/21/2017 diagnosed with a left hip fracture status post closed reduction and cephalomedullary nailing on 05/21/2017. In the postoperative period, she has debility with alterations in activities of daily living. She did have a fall at home from standing height landing onto the left side. She was also positive for urinary tract infection. She has been treated for that. She has needs in physical and occupational therapy as well as mild impairment of comprehension, expression, memory and problem solving, multiple medical comorbidities. No significant changes since the preadmission screening. Previous level of function independent with activities of daily living. Current level of function is minimum to moderate assistance of 1-2 depending on therapy, activity and time of day. She has been ambulating with hip precautions with a front-wheeled walker at 30 feet, minimum assistance. <ELECTRONICALLY SIGNED> By: Jesi Ivy DO 07/03/17 1329 1621 1740DO ravinder Swan
--- NOTE | 2017-07-03 13:29 | H ---
[address] [address] HISTORY AND PHYSICAL Name: GUILLE LAN Room: [address] IN .[place].#: [id number] Admission: 05/25/17 Attend Phys: Jesi Ivy DO Discharge: 06/08/17 Date of : 36 Report #: [id number] THIS REPORT FOR: //name// CC: Elvi Ivy DATE OF SERVICE: 05/25/2017 PAST MEDICAL HISTORY: Hypertension, DDD, COPD, recent urinary tract infection, GERD, gout, osteoarthritis, renal insufficiency, hypothyroid, hyperlipidemia, chronic kidney disease stage 3, Achilles tendinitis. PAST SURGICAL HISTORY: Tonsillectomy, back surgery, bilateral total knee replacements and a tubal ligation. She does have anemia with hemoglobin of 10.2, random glucose of 111. ALLERGIES: No known drug allergies. MEDICATIONS: Reviewed and reconciled by myself and are available in the MAR. SOCIAL HISTORY: No tobacco, alcohol or illicit drug use. FAMILY HISTORY: Arthritis and hyperlipidemia. REVIEW OF SYSTEMS: A 14-point review of systems is done today is negative except as mentioned in HPI, specifically no fever, chest pain, shortness of breath, abdominal pain or distention. PHYSICAL EXAMINATION: GENERAL: Alert, oriented, no apparent distress. VITAL SIGNS: Reviewed and are stable. HEENT: Head atraumatic, normocephalic. Pupils are equal, round and reactive. ABDOMEN: Soft, nontender, nondistended. NEUROLOGIC: Cranial nerves 2-12 are grossly intact. No focal neuro deficits, 5/5 strength in bilateral upper and lower extremities. SKIN: Warm and dry. No rashes or lesions noted. ASSESSMENT: 1. Status post fall from standing height, sustaining a left hip fracture, status post closed reduction with cephalomedullary nailing. 2. Multiple medical comorbidities requiring acute inpatient rehabilitation. 3. Needs in physical and occupational therapy as well as speech and language pathology. 4. Recent urinary tract infection. PLAN: [place] [address] HISTORY AND PHYSICAL Name: GUILLE LAN E Room: [address] IN M.R.#: [id number] Admission: 05/25/17 Attend Phys: Jesi Ivy DO Discharge: 06/08/17 Date of : 36 Report #: [id number] 1. Admission to inpatient rehabilitation. 2. PT, OT, speech, language, case management, nursing and HIMS to make evaluations and recommendations. 3. Plan of care is pending. 4. We will team her weekly and make changes to plan of care as needed. 5. Pain medication as needed. <ELECTRONICALLY SIGNED> By: Jesi Ivy DO 07/03/17 1329 1624 1748Jesi Ivy DO /nt
--- NOTE | 2017-07-03 13:29 | PLAN ---
[address] [address] REHAB UNIT PLAN OF CARE Name: GUILLE LAN Room: [address] IN .R.#: [id number] Admission: 05/25/17 Attend Phys: Jesi Ivy DO Discharge: 06/08/17 Date of : 36 Report #: [id number] THIS REPORT FOR: //name// CC: Elvi Ivy This is a 76-year-old female admitted to inpatient rehabilitation status post fall from standing height in her household onto the left side, sustaining a left hip fracture, status post closed reduction and cephalomedullary nailing. She has alterations in activities of daily living requiring acute inpatient rehabilitation. She has needs and physical and occupational therapy as well as mild impairment of comprehension, expression, social interaction, problem solving and memory. MEDICAL PROGNOSIS: Good. REHABILITATION PROGNOSIS: Good. There has been no significant changes from the preadmission screening. ESTIMATED LENGTH OF STAY: 12-14 days. DISCHARGE DISPOSITION: To the home setting with supportive family. Physical therapy will see the patient 60-90 minutes per day, 5 days per week, working on upper and lower body strength, balance, coordination, navigation. She will also be maintained on hip precautions at this time. Occupational therapy will work with the patient 60-90 minutes per day, 5 days per week, working on upper and lower body strength, balance, coordination, navigation, bathing, dressing, and toileting while also maintain hip precautions. Speech and language pathology will work with the patient 30-90 minutes per day, 5 days per week, working on memory strategies, interaction and coercion. This is an overall plan of care, may change from time to time. We will obtain weekly and make changes to the plan of care as needed. <ELECTRONICALLY SIGNED> By: Jesi Ivy DO 07/03/17 1329 1641 1840Jesi Ivy DO /nt
--- NOTE | 2017-07-03 13:29 | PLAN ---
[address] [address] REHAB UNIT PLAN OF CARE Name: GUILLE LAN Room: [address] IN .R.#: [id number] Admission: 05/25/17 Attend Phys: Jesi Ivy, Discharge: 06/08/17 Date of : 36 Report #: [id number] THIS REPORT FOR: //name// CC: Elvi Ivy This is a 76-year-old female admitted to inpatient rehabilitation status post fall from standing in her home setting onto the left side, sustaining a left hip fracture, post closed reduction and cephalomedullary nailing on 05/21/2017. Medical prognosis is good. Rehabilitation prognosis is good. Previous level of function was independent with activities of daily living, modified independent with activities of daily living. Current level of functioning is minimum to moderate assistance depending on therapy, activity and time of day. She does have some mild impairment of comprehension, expression, social interaction, problem solving and memory. Estimated length of stay is 12-14 days with discharge disposition to the home setting with supportive family. Physical therapy will see the patient 60-90 minutes per day, 5 days per week, working on upper and lower body strength, balance, coordination, navigation, bathing, dressing. Occupational therapy will work with the patient 60-90 minutes per day, 5 days per week, working on upper and lower body strength, balance, coordination, navigation, bathing, dressing, and toileting. Speech and language pathology will work with the patient 30-90 minutes per day, 5 days per week, working on memory, cognition and interaction and social interaction and expression. This is an overall plan of care, may change from time to time. We will team weekly make change plan of care as needed. <ELECTRONICALLY SIGNED> By: Jesi Ivy DO 07/03/17 1329 1646 1844Jesi Ivy DO /nt
== END 2017-06-08 14:55 | disposition home health service (06) | DRG 536 ==
LOC: M.REH 15:18
PROVIDERS: Internal Medicine; ADMIT Physical Medicine & Rehabilitation
DX: S72.142A Displaced intertrochanteric fracture of left femur, initial encounter for closed fracture (principal); N39.0 Urinary tract infection, site not specified; N17.9 Acute kidney failure, unspecified; B37.0 Candidal stomatitis; R53.81 Other malaise; M19.90 Unspecified osteoarthritis, unspecified site; K21.9 Gastro-esophageal reflux disease without esophagitis; E03.9 Hypothyroidism, unspecified; E78.5 Hyperlipidemia, unspecified; N18.3 Chronic kidney disease, stage 3 (moderate); I12.9 Hypertensive chronic kidney disease with stage 1 through stage 4 chronic kidney disease, or unspecified chronic kidney disease; M10.9 Gout, unspecified; Z96.653 Presence of artificial knee joint, bilateral; D64.9 Anemia, unspecified; M81.0 Age-related osteoporosis without current pathological fracture; J44.9 Chronic obstructive pulmonary disease, unspecified; K59.00 Constipation, unspecified; Z79.899 Other long term (current) drug therapy; W19.XXXA Unspecified fall, initial encounter; Y93.89 Activity, other specified; Y92.89 Other specified places as the place of occurrence of the external cause; Y99.8 Other external cause status; Z82.61 Family history of arthritis

== ENCOUNTER 2017-07-10 09:07 | Emergency (ER) | payer MEDICARE, BC ==
[~2017-07-10] VITALS: Ht 167.6 cm; Wt 77.1 kg
[~2017-07-10 09:07] MED LIST changes: +FLEXERIL PO; +OXYCODONE HCL 55 MG PO; +PERIDEX 0.12%473 M1 PO; +PERIDEX 0.12%473 M1 SW&SWALLOW
[2017-07-10] MEDS ORDERED: PERCOCET PO (11:47)
[2017-07-10 11:57] VITALS: BP 138/71
--- NOTE | 2017-07-10 16:41 | EKG ---
[place] [address] ELECTROCARDIOGRAM REPORT Name: GUILLE LAN Room: [facility]#: [id number] Admission: 07/10/17 Attend Phys: Discharge: 07/10/17 Date of : 36 Report #: [id number] THIS REPORT FOR: //name// [facility] ED Test Date: 2017-07-10 Test Time: 10:41:42 Pat Name: GUILLE LAN Department: Room: Gender: F Statistical Secretary: YA : 1940 Requested By: Ruy Cruz Order Number: [id number] MD: Shahbaz Viera Measurements Intervals [place] Rate: 77 P: 46 CO: 163 QRS: 20 QRSD: 94 T: 22 QT: 410 QTc: 465 Interpretive Statements Sinus rhythm Compared to ECG 05/21/2017 15:22:20 No significant changes Electronically Signed On 07-10-2017 16:40:52 CDT by Shahbaz Viera [email or web address] <ELECTRONICALLY SIGNED> By: Shahbaz Viera MD, [facility] 07/10/17 1640 1041 1041 Shahbaz Viera MD, FACC /EPI
== END 2017-07-10 11:58 | disposition home or self-care (01) ==
LOC: M.ERS 09:07
DX: M79.1 Myalgia (principal); M25.512 Pain in left shoulder; M10.9 Gout, unspecified; K21.9 Gastro-esophageal reflux disease without esophagitis; E03.9 Hypothyroidism, unspecified; J44.9 Chronic obstructive pulmonary disease, unspecified; M19.90 Unspecified osteoarthritis, unspecified site; M32.9 Systemic lupus erythematosus, unspecified; Z90.89 Acquired absence of other organs

== ENCOUNTER 2019-12-20 18:35 | Emergency (ER) | payer MEDICARE ==
[~2019-12-20] VITALS: Ht 165.1 cm; Wt 72.6 kg
[~2019-12-20 18:35] MED LIST changes: +PERCOCET PO
[2019-12-20] MEDS ORDERED: LORCET 5-325 M1 EACH PO (20:16)
[2019-12-20 20:43] VITALS: BP 171/89
== END 2019-12-20 20:44 | disposition home or self-care (01) ==
LOC: M.ERS 18:35
DX: S42.215A Unspecified nondisplaced fracture of surgical neck of left humerus, initial encounter for closed fracture (principal); M25.561 Pain in right knee; K21.9 Gastro-esophageal reflux disease without esophagitis; E03.9 Hypothyroidism, unspecified; J44.9 Chronic obstructive pulmonary disease, unspecified; M19.90 Unspecified osteoarthritis, unspecified site; Z98.51 Tubal ligation status; Z96.659 Presence of unspecified artificial knee joint; W10.8XXA Fall (on) (from) other stairs and steps, initial encounter; Y93.89 Activity, other specified; Y92.89 Other specified places as the place of occurrence of the external cause; Y99.8 Other external cause status